=== PATIENT | female | born 1995 | race Two or more races ===

== ENCOUNTER 2020-11-15 13:57 | Outpatient (CLI) | payer BC | END 2020-11-15 23:59 | disposition home or self-care (01) | LOC: RAD 13:57 | PROVIDERS: ATTEND Physician Assistant | DX: S82.002A Unspecified fracture of left patella, initial encounter for closed fracture (principal); X58.XXXA Exposure to other specified factors, initial encounter; Y93.89 Activity, other specified; Y92.89 Other specified places as the place of occurrence of the external cause; Y99.8 Other external cause status ==